=== PATIENT | female | born 1955 | race Caucasian/White ===

== ENCOUNTER → 2017-04-23 | Outpatient (CLI) | payer BC | END | disposition home or self-care (01) | LOC: C.RDSM 17:01 | PROVIDERS: ATTEND Physical Medicine & Rehabilitation Sports Medicine | DX: M25.561 Pain in right knee (principal) ==

== ENCOUNTER → 2017-06-11 | Outpatient (CLI) | payer BC | END | disposition home or self-care (01) | LOC: C.PAPS 13:55 | PROVIDERS: ATTEND Obstetrics & Gynecology | DX: Z01.419 Encounter for gynecological examination (general) (routine) without abnormal findings (principal); Z78.0 Asymptomatic menopausal state ==

== ENCOUNTER → 2017-06-25 | Outpatient (CLI) | payer BC ==
--- NOTE | 2017-06-25 15:44 | MAMMOGRAPHY REPORT ---
BILATERAL DIGITAL SCREENING MAMMOGRAM TOMOSYNTHESIS WITH CAD: 06/25/2017 CLINICAL HISTORY: Routine screening. Patient has no complaints. TECHNIQUE: Breast tomosynthesis in addition to standard 2D mammography was performed. Current study was also evaluated with a Computer Aided Detection (CAD) system. COMPARISON: Comparison is made to exams dated: 06/22/2016 mammogram, 06/21/2015 mammogram, 06/18/2014 m ammogram, 06/17/2013 mammogram, 06/13/2012 mammogram, and 06/13/2011 mammogram - [facility] enter. BREAST COMPOSITION: The tissue of both breasts is heterogeneously dense, which may obscure small mas ses. FINDINGS: There is evidence of prior left breast surgery, with linear scar markers overlying the late ral left breast. There are stable benign rodlike calcifications in the lateral left breast. Stable asymmetry in the superior right breast on the MLO view. No new suspicious mass, architectural distor tion or cluster of microcalcifications is seen. IMPRESSION: ACR BI-RADS CATEGORY 1: NEGATIVE There is no mammographic evidence of malignancy. A 1 year screening mammogram is recommended. The pa tient will receive written notification of the results. Approximately 10% of breast cancers are not detected with mammography. A negative mammographic report should not delay biopsy if a clinically suggestive mass is present. Toya Maldonado M.D. ay/:06/25/2017 12:45:28 [employer]: Betsey Jimenez [facility] letter sent: Normal 1/2 BI-RADS Code: ACR BI-RADS Category 1: Negative
== END | disposition home or self-care (01) ==
LOC: C.MAMM 11:45
PROVIDERS: ATTEND Obstetrics & Gynecology
DX: Z12.31 Encounter for screening mammogram for malignant neoplasm of breast (principal)

== ENCOUNTER → 2017-08-14 | Outpatient (CLI) | payer BC ==
[2017-08-14 10:13] LABS: BASO % 0.3 %; BASO ABS # 0.02 K/uL (0-0.2); COMPLETE YES; EOS % 5.7 %; HEMATOCRIT 43.7 % (37-47); IG% 0.2 %; LYMPH % 27.5 %; LYMPH ABS # 1.83 K/uL (1.2-3.4); MEAN CELL VOLUME 89.9 fL (80-100); MEAN CORPUSCULAR HEMOGLOBIN 29.4 pg (25-34); MEAN CORPUSCULAR HGB CONC 32.7 g/dl (32-36); MEAN PLATELET VOLUME 9.4 fL (7.4-10.4); MONO % 7.2 %; NEUT % 59.1 %; PLATELET COUNT 298 K/uL (130-400); RED BLOOD COUNT 4.86 M/uL (4.2-5.4); WHITE BLOOD COUNT 6.66 K/uL (4.8-10.8)
[2017-08-14 12:39] LABS: ALT/SGPT 26 U/L (12-78); BLOOD UREA NITROGEN 15 mg/dl (7-18); BUN/CREATININE RATIO 22.3 (10-20); CARBON DIOXIDE 27 mmol/L (21-32); CHLORIDE 106 mmol/L (98-107); CHOLESTEROL 202 mg/dl (0-200); CREATININE 0.69 mg/dl (0.60-1.20); GLUCOSE 92 mg/dl (70-99); POTASSIUM 3.8 mmol/L (3.5-5.1); SODIUM 139 mmol/L (136-145); TRIGLYCERIDES 125 mg/dl (0-150); VERY LOW DENSITY LIPOPROT CALC 25 mg/dl
[2017-08-14 12:49] LABS: ALB/GLOB RATIO 1.1 (0.9-2); ALKALINE PHOSPHATASE 79 U/L (45-117); AST/SGOT 16 U/L (15-37); CHOLESTEROL/HDL RATIO 4.2; HDL CHOLESTEROL 48 mg/dl; LDL CHOLESTEROL CALCULATED 129 mg/dl
== END | disposition home or self-care (01) ==
LOC: C.LAB1850 09:22
PROVIDERS: ATTEND Internal Medicine Pulmonary Disease
DX: I10 Essential (primary) hypertension (principal); R00.2 Palpitations

== ENCOUNTER → 2017-11-30 | Outpatient (CLI) | payer OTHER ==
--- NOTE | 2017-11-30 15:23 | DIAGNOSTIC IMAGING REPORT ---
R TOE(S) MIN 2 VIEWS, L TOE(S) MIN 2 VIEWS HISTORY: 62 years-old Female COMPARISON TO L HALLUX bilateral great toe pain COMPARISON: None available. TECHNIQUE: 3 views of the bilateral toes with attention to the first digits. FINDINGS: LEFT: Mild joint space narrowing with subchondral sclerosis of the first MTP joint. Mild periarticular osteopenia. No acute fracture or dislocation. No opaque foreign body. Mild degenerative changes of the imaged interphalangeal joints. RIGHT: Mild joint space narrowing with subchondral sclerosis of the first MTP joint, most pronounced medially. Mild periarticular osteopenia. No acute fracture or dislocation. No opaque foreign body. Mild degenerative changes of the imaged interphalangeal joints. 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 The above report was generated using voice recognition software. It may contain grammatical, syntax or spelling errors. Electronically signed by: Madhu Wang M.D. 11/30/2017 3:22 PM Dictated Date/Time: 11/30/2017 3:19 PM
== END | disposition home or self-care (01) ==
LOC: C.RAD1850 14:55
PROVIDERS: ATTEND Podiatrist
DX: M25.775 Osteophyte, left foot (principal)

== ENCOUNTER 2025-01-22 16:35 | Observation (INO) ==
--- NOTE | 2025-01-22 16:52 | Emergency Department Note ---
Impression & Plan Fall, Pericardial effusion, Cardiomegaly, Closed fracture of distal end of right fibula, Fracture of first metatarsal bone of right foot ED Provider Note CHIEF COMPLAINT: Fall, ankle and foot injury HISTORY OF PRESENTING ILLNESS: This 70-year-old female patient presents to the emergency department with her for evaluation after a fall. The patient states that she just got back from [email or web address] today. She was unpacking and started to walk down the steps. The patient apparently fell down 5 steps, but the patient does not remember the event or how she fell. The patient just remembers waking up at the bottom of the steps. The patient does not think she hit her head, but does not remember. She is not on a blood thinner. She is complaining of right ankle and foot pain with swelling. The patient was able to walk back up the steps after the event, but is having trouble walking now. She denies any known chest pain, SOB, or dizziness prior to the fall. She denies any chest pain, SOB, or abdominal pain at this time. Denies headache, dizziness, change in vision, nausea, vomiting, or change in personality. Denies any neck or back pain. Mild right hip pain and then most pain in the right ankle and foot. REVIEW OF SYSTEMS: See HPI for pertinent positives and pertinent negatives. ALLERGIES: PCN, amoxicillin, Sulfa, adhesive tape MEDICATIONS: See below PAST MEDICAL HISTORY: See below PHYSICAL EXAM: VITALS: Vitals are noted on the nurse's note and reviewed by myself. GENERAL: No acute distress, non-diaphoretic. SKIN: The skin was without obvious lacerations or abrasions. The patient has some sunburn on exam, but no evidence for peeling, vesicles, pustules, or infection. Capillary reflex less than 2 seconds. HEAD: Normocephalic. No scalp tenderness or step-offs felt. EARS: Bilateral external auditory canals clear without tragus tenderness. Bilateral tympanic membranes pearly morales without erythema or effusion. No mastoid tenderness bilaterally. No hemotympanum. No duque sign. EYES: Pupils equal round and reactive to light and accommodation. Conjunctivae without injection, sclerae without icterus. Extraocular movements intact. No nystagmus. NOSE: Patent without discharge. No sinus tenderness. No septal hematoma or bleeding. FACE: No facial bone tenderness. Full range of motion of the jaw without tenderness. No facial droop. MOUTH: Mucous membranes moist. Pharynx without erythema or exudate. Uvula midline. Airway patent. Tongue does not deviate. NECK: Supple without nuchal rigidity. Cervical spine is nontender. Full range of motion of the neck without tenderness. HEART: Regular rate and rhythm without murmurs gallops or rubs. LUNGS: Clear to auscultation bilaterally without wheezes, rales or rhonchi. No retractions or accessory muscle use. CHEST: No chest wall tenderness. ABDOMEN: Positive bowel sounds x 4. Normal tympanic percussion. Soft, nontender, without masses or organomegaly. No guarding or rebound tenderness. MUSCULOSKELETAL: No tenderness of the thoracic or lumbar spine. No tenderness with pelvic rocking. Patient has mild tenderness to palpation over the lateral aspect of the right hip. The patient is maximally tender to palpation over the dorsal aspect of the right foot, the right great toe, and the lateral malleolus of the right ankle. The right great toe is pulled dorsally, but she still has full passive range of motion. However, the patient is unable to move the great toe and has no strength to resistance and I am concerned about a possible tendon or ligament injury. No tenderness to palpation to the remainder of the right lower extremity. Full range of motion of the right knee and right hip without significant tenderness. Full range of motion without tenderness to palpation in all remaining extremities. Dorsalis pedis and posterior tibial pulses 2+ and equal bilaterally. Radial pulses 2+ and equal bilaterally. NEURO: Patient was alert and oriented to person place and time. Normal mental status exam. Normal sensation to light and sharp touch. Cerebellar function intact. No focal neurological deficits. DIFFERENTIAL DIAGNOSIS: Differential diagnosis includes cardiac arrhythmia, SD, vasovagal syndrome, aortic stenosis, pulmonary stenosis, hypertrophic cardiomyopathy, mitral valve prolapse, prolonged QT syndrome, sick sinus syndrome, drug toxicity, tension pneumothorax, cardiopulmonary syncope, pulmonary vascular disease, basilar artery insufficiency, subclavian steal syndrome, migraine, carotid sinus syndrome, orthostatic hypotension, dehydration, hyperventilation, psychiatric causes, fracture, subluxation, dislocation, contusion, ligamentous injury, neurovascular, compartment syndrome, rhabdomyolysis, as well as other pathologies. ED COURSE AND MEDICAL DECISION MAKING: HISTORY FROM INDEPENDENT HISTORIAN: Additional history obtained from the patient's MEDICATIONS GIVEN: 500 mL normal saline solution bolus. Tylenol 1000 mg IV. MONITOR: Continuous campus monitor: Order was placed for continuous campus monitor. Patient was placed on the campus monitor and continuous pulse ox. Patient was noted to be in normal sinus rhythm at an initial rate of 80 bpm per my interpretation. EKG: EKG was interpreted by myself as normal sinus rhythm at 76 bpm with no acute ST or T wave changes. Her QT has lengthened from her previous EKG with a QT/QTc of 404/454. INTERPRETATION OF LABS: I interpreted the labs with full lab results as below in the lab section of this note. Laboratory results pertinent to the emergent complaint are discussed in the MDM section below. The patient was advised to follow up with their PCP and/or specialist(s) for further outpatient monitoring and management of any abnormal results. INTERPRETATION OF IMAGING: Imaging studies were interpreted by myself and read by radiology as per the imaging section of this note. The patient was advised to follow up with their PCP and/or specialist(s) for further outpatient management of any non-emergent abnormal findings. CT scan of the head without contrast was negative for acute intracranial abnormality. Chest x-ray showed mild prominent cardiac size, but no other acute cardiopulmonary etiology. X-rays of the right hip and pelvis were negative for acute fracture or dislocation. X-rays of the right ankle show a mildly displaced acute traumatic spiral fracture of the distal fibular shaft. X-rays of the right foot show an age-indeterminate injury at the base of the hallux metatarsal with an age-indeterminate avulsion injury with intra-articular extension into the TMT joint and abnormal widening of the Lisfranc interval. I am concerned that these are acute injuries based on the patient's exam findings. CTA of the chest with IV contrast shows no evidence for PE. There is cardiomegaly and mild pulmonary vascular congestion as well as a trace pericardial effusion. Venous Doppler of the bilateral lower extremities interpreted by myself are negative for DVT, but radiology report still pending. CT scans of the right foot and ankle without contrast were still pending at the time of admission. CONSULTATIONS: Dr. Gray of orthopedics. On-call hospitalist. SPLINTING: Definitive fracture care was performed by myself. The patient was placed in a posterior and sugar-tong Ortho-Glass splint under my direction. Neurovascular status was rechecked and intact. MDM SUMMARY: I examined the patient. The patient just came back from [facility] today. She was unpacking and ended up falling down 5 steps. However, the patient does not remember falling down the steps and does not remember what happened to cause her to fall down the steps. Unclear whether this was a syncopal episode causing the fall, a loss of consciousness from the fall, or mechanical fall with poor memory of the event. The patient is complaining of pain mainly to the right ankle and foot, but also has minimal tenderness to palpation over the lateral aspect of the right hip. She denies any chest pain, shortness of breath, abdominal pain, nausea, vomiting, or other head injury symptoms. She denies any neck or back pain. Denies any pain to the remainder of the extremities. The patient also had a flight to and from [place] in September. Since it is uncertain whether this was a syncopal episode or not, a further workup will be performed. An IV lock was placed and labs were drawn. White blood cell count normal at 10.30. Hemoglobin normal at 13.8. Platelet count normal at 280. Coags were normal. Glucose 112, but CMP otherwise normal. Lipase normal. Magnesium normal. High-sensitivity troponin normal. Urinalysis normal. The patient has no tenderness to palpation of the cervical spine, thoracic spine, or lumbar spine. No tenderness to palpation in any area other than the right lateral hip, right ankle, and right foot. Initially the patient had a CT scan of the head without contrast that was negative for acute intracranial abnormality, chest x-ray that showed mild prominent cardiac size, but otherwise negative, negative x-rays of the right hip and pelvis, and x-rays of the right ankle and foot that show the fractures as above. I spoke with Dr. Gray of orthopedics in regards to the foot and ankle fractures. He recommended CT scans of the foot and ankle without contrast for further evaluation to determine if surgical intervention were required. He recommended a posterior and stirrup Ortho-Glass splint for immobilization. He recommended the patient be nonweightbearing. He did not feel the patient required admission or transfer for the orthopedic injuries. The patient's D-dimer did come back elevated at 2350. CTA of the chest with IV contrast shows no evidence for PE. There is cardiomegaly and mild pulmonary vascular congestion as well as a trace pericardial effusion. Venous Doppler of the bilateral lower extremities interpreted by myself are negative for DVT, but radiology report still pending. I had a meaningful discussion about this patient with Dr. Liao who agrees with my assessment and the treatment plan. Due to the patient's possible syncopal episode as a cause of the fall since she could not remember the fall itself or what caused her to fall as well as the cardiomegaly, pulmonary vascular congestion, and trace pericardial effusion on imaging, we feel the patient requires admission for further evaluation and treatment. I spoke with the on- call hospitalist who agreed to admit the patient for further evaluation and treatment. Please refer to their dictation for further details. CT scans of the right foot and ankle without contrast were still pending at the time of admission. The patient's care was transferred in stable condition. DIAGNOSIS: Fall - possible syncopal episode vs mechanical etiology as cause Cardiomegaly with trace pericardial effusion Right distal fibular fracture Fracture of the right first metatarsal with extension into the TMT joint and widening of the Lisfranc interval Elevated D-dimer Past Med/Surg History Problem List (Updated 01/22/25 @ 23:21 by Anahy Germain PA-C) Elevated d-dimer Fracture of first metatarsal bone of right foot (Acute) Closed fracture of distal end of right fibula (Acute) Cardiomegaly (Acute) Pericardial effusion (Acute) Fall (Acute) History of colon polyps Overweight (BMI 25.0-29.9) Hypokalemia Impaired fasting glucose Hypothyroidism Dyslipidemia (Chronic) Hypertension (Chronic) Medical History Prediabetes Dyslipidemia Hypertension Insomnia Tinea corporis Postmenopausal state Fear of needles Hypothyroidism GERD (gastroesophageal reflux disease) Hiatal hernia Arrhythmia Surgical History History of surgical removal of ganglion cyst History of repair of rotator cuff History of esophagogastroduodenoscopy (EGD) History of cardiac cath History of wisdom tooth extraction History of tubal ligation History of breast surgery History of tonsillectomy History of colonoscopy (~09/2019) Family History Family/Other Diabetes Hypertension Son Systemic lupus erythematosus Rheumatoid arthritis Mother Rheumatoid arthritis Diabetes Hyperlipidemia Stroke Grandmother Breast cancer Brother Aortic aneurysm Denies family history of Ovarian cancer Prostate cancer Colorectal cancer Social History Smoking Status: Former smoker Tobacco Type: Cigarettes Age Started Using Tobacco: 33; Age Quit Using Tobacco: 45; packs per day: 0.5; Second Hand Exposure: No; Do You Dip or Chew Tobacco: No; Hx Alcohol Use: Yes Alcohol type: wine Hx Substance Use: No Preferred Language: Maltese Communication Ability: Effective Process Inspector Required: No Beliefs That Will Affect Care: None Current Living Situation: Spouse current occupational status: retired Feels Safe at Home: Yes Dental Care, Regularly: Yes Physical Activity Frequency: 3-4 Times per Week Seatbelt Use: always Sunscreen Use: No Assistive Devices: Glasses Allergies Allergies Allergy/AdvReac Type Severity Reaction Status Date / Time adhesive tape Allergy Mild SKIN Verified 11/27/24 10:04 BLISTERS Penicillins Allergy Unknown A Verified 11/27/24 10:04 CHILD-"CLUMPED IN ARM" Sulfa (Sulfonamide Allergy Unknown Unknown Verified 11/27/24 10:04 Antibiotics) amoxicillin AdvReac Unknown NAUSEA AND Verified 11/27/24 10:04 VOMITING Home Meds Home Medications Medication Instructions Recorded Confirmed cholecalciferol (vitamin D3) 10 400 unit PO 3XWK 08/07/19 01/22/25 mcg (400 unit) capsule (Vitamin D3) cyanocobalamin (vitamin B-12) 500 500 mcg PO 3XWK 08/07/19 01/22/25 mcg tablet glucosamine-chondroitin 250 mg-200 1 tab PO 3XWK 08/07/19 01/22/25 mg tablet (Osteo Bi-Flex) multivitamin 1 tab PO 3XWK 08/07/19 01/22/25 ascorbic acid (vitamin C) 500 mg 500 mg PO DAILY 11/03/24 01/22/25 tablet,extended release (Vitamin C ER) levothyroxine 50 mcg tablet 50 mcg PO DAILYBB 01/22/25 01/22/25 losartan 100 mg tablet 100 mg PO QAM 01/22/25 01/22/25 Previous Rx's Medication Instructions Recorded potassium chloride 20 mEq 20 meq PO QAM #90 tabs 04/09/24 tablet,extended release(part/cryst) Results & Data (ED) Vital Signs Vital Signs - 24 hr 01/22/25 16:40 01/22/25 17:01 01/22/25 17:23 Temperature 36.5 C Temperature Source Temporal Artery Scan Pulse Rate 79 68 Pulse Rate [Apical] Pulse Rate from SpO2 Sensor Respiratory Rate 22 Respiratory Effort / Characteristics Respiratory Depth Blood Pressure 157/86 H Blood Pressure [Left Arm] Blood Pressure Mean 109 Blood Pressure Mean [Left Arm] Pulse Oximetry 98 98 Oxygen Delivery Method Room Air Room Air Sepsis Recent Fever Within 48 Hours No Sepsis New/Unexplained Change in Mental Status N/A Sepsis Action Taken by Nursing No Action Required 01/22/25 18:00 01/22/25 19:45 01/22/25 19:51 Temperature Temperature Source Pulse Rate 72 Pulse Rate [Apical] 71 72 Pulse Rate from SpO2 Sensor 73 Respiratory Rate 18 17 21 Respiratory Effort / Characteristics Non-Labored Spontaneous Respiratory Depth Normal Blood Pressure 138/88 Blood Pressure [Left Arm] 154/75 H 188/104 H Blood Pressure Mean 104 Blood Pressure Mean [Left Arm] 101 132 Pulse Oximetry 98 96 97 Oxygen Delivery Method Room Air Room Air Sepsis Recent Fever Within 48 Hours Sepsis New/Unexplained Change in Mental Status Sepsis Action Taken by Nursing 01/22/25 21:06 Temperature Temperature Source Pulse Rate 71 Pulse Rate [Apical] Pulse Rate from SpO2 Sensor 72 Respiratory Rate 21 Respiratory Effort / Characteristics Respiratory Depth Blood Pressure 156/95 H Blood Pressure [Left Arm] Blood Pressure Mean 115 Blood Pressure Mean [Left Arm] Pulse Oximetry 98 Oxygen Delivery Method Sepsis Recent Fever Within 48 Hours Sepsis New/Unexplained Change in Mental Status Sepsis Action Taken by Nursing Laboratory Data 01/22/25 17:08 01/22/25 17:08 Lab Results 01/22/25 01/22/25 Range/Units 17:08 19:05 WBC 10.30 (4.8-10.8) K/ul RBC 4.73 (4.20-5.40) M/uL Hgb 13.8 (12.0-16.0) g/dl Hct 42.4 (37.0-47.0) % MCV 89.6 (80.0-100.0) fL MCH 29.2 (25.0-34.0) pg MCHC 32.5 (32.0-36.0) g/dL RDW Std Deviation 44.7 (36.4-46.3) fL RDW Coeff of [place]ingo 13.6 (11.5-14.5) % Plt Count 280 (130-400) K/uL MPV 9.2 L (9.4-12.4) fL Immature Gran % (Auto) 0.4 % Neut % (Auto) 75.4 % Lymph % (Auto) 14.2 % [place] % (Auto) 6.6 % Eos % (Auto) 3.0 % Baso % (Auto) 0.4 % Neut # (Auto) 7.77 H (1.40-6.50) K/uL Lymph # (Auto) 1.46 (1.20-3.40) K/uL [place] # (Auto) 0.68 H (0.11-0.59) K/uL Eos # (Auto) 0.31 (0.00-0.50) K/uL Baso # (Auto) 0.04 (0.00-0.20) K/uL Immature Gran # (Auto) 0.04 (0.01-0.20) K/uL PT 10.9 (9.0-12.0) Seconds INR 1.0 (0.9-1.1) APTT 22 (21-31) Seconds PTT Ratio 0.8 D-Dimer 2350 H* (0-500) ug/L FEU Sodium 140 (136-145) mmol/L Potassium 3.8 (3.5-5.1) mmol/L Chloride 107 (98-107) mmol/L Carbon Dioxide 27 (21-32) mmol/L Anion Gap 6 (3-11) BUN 14 (6-23) mg/dl Creatinine 0.77 (0.6-1.2) mg/dl Est Cr Clr Drug Dosing 78.5 ml/min eGFR 83.45 BUN/Creatinine Ratio 18.2 (10-20) Glucose 112 H (70-99(Fasting)) mg/dl Calcium 8.9 (8.6-10.3) mg/dl Magnesium 2.0 (1.7-2.4) mg/dl Total Bilirubin 0.6 (0.2-1.0) mg/dl AST 13 (13-39) U/L ALT 10 (7-52) U/L Alkaline Phosphatase 65 (34-104) U/L Troponin I High Sens 5.3 (0-14) pg/ml Total Protein 6.8 (6.0-8.3) gm/dl Albumin 4.2 (3.4-5.0) gm/dl Globulin 2.6 (2.5-4.0) gm/dl Albumin/Globulin Ratio 1.6 (0.9-2) Lipase 18 (11-82) U/L Urine Color Yellow Urine Appearance Clear (Clear) Urine pH 5.5 (4.5-7.5) Ur Specific [place] 1.016 (1.000-1.030) Urine Protein Negative (Negative) Urine Glucose (UA) Negative (Negative) Urine Ketones Negative (Negative) Urine Blood Negative (Negative) Urine Nitrite Negative (Negative) Urine Bilirubin Negative (Negative) Urine Urobilinogen Negative (Negative) Ur Leukocyte Esterase Negative (Negative) Administered Medications Discontinued Medications Sodium Chloride (Nss) 500 mls @ 999 mls/hr IV .Q31M ONE Stop: 01/22/25 17:31 Last Infusion: 01/22/25 19:46 Dose: Infused Documented By: Admin: 01/22/25 17:18 Dose: 999 mls/hr Documented By: JANIA Acetaminophen (Ofirmev) 1,000 mg in 100 mls @ 400 mls/hr IV NOW STA Stop: 01/22/25 17:15 Last Infusion: 01/22/25 19:46 Dose: Infused Documented By: Admin: 01/22/25 17:17 Dose: 400 mls/hr Documented By: JANIA Ioversol (Optiray 320 125ml) 119 ml IV ONCE ONE Stop: 01/22/25 18:50 Last Admin: 01/22/25 18:50 Dose: 119 ml Documented By: CASSI Imaging Data Radiologist's Impression: Ankle X-Ray 01/22/25 17:01 INDICATION: Pain TECHNIQUE: 4 views of the right ankle were obtained. COMPARISON: None FINDINGS: There is a spiral lucency over the distal fibular shaft. There is no significant displacement identified in the ankle x-ray,however when this area is evaluated in the foot x-ray, there appears to be a mild displacement. IMPRESSION: Mildly displaced acute traumatic spiral fracture of the distal fibular shaft Electronically signed by Nura Navarro 01-22-2025 6:43 PM Chest X-Ray 01/22/25 17:01 EXAM: Portable AP chest radiograph TECHNIQUE: AP portable radiograph of the chest was obtained. INDICATION: Trauma Comparison: Chest radiograph FINDINGS: LINES and TUBES: None CARDIOVASCULAR: Cardiac silhouette is mildly enlarged in size. LUNGS/PLEURA: No focal consolidation identified. No significant pleural fluid. No discernible pneumothorax. OSSEOUS/OTHER: No displaced acute osseous process identified. IMPRESSION: Mildly prominent cardiac size. Otherwise no radiographic evidence of acute cardiopulmonary process. Electronically signed by Nura Navarro 01-22-2025 6:43 PM Foot X-Ray 01/22/25 17:01 INDICATION: Pain TECHNIQUE: 4 views of the right foot were obtained. COMPARISON: None FINDINGS: There is an age-indeterminate avulsion injury in the base of the hallux metatarsal. In addition there is an abnormal widening of the Lisfranc interval. IMPRESSION: Evidence of age-indeterminate injury at the base of the hallux metatarsal with an age-indeterminate avulsion injury with intra-articular extension into the TMT joint and abnormal widening of the Lisfranc interval. Electronically signed by Nura Navarro 01-22-2025 6:[address] 01/22/25 17:01 Clinical History: Fall. Possible syncope. Technique: Axial computed tomography images were obtained of the brain from the vertex to the skull base without intravenous contrast. Findings: There is no sign of intracranial hemorrhage. There is normal morales-white matter differentiation with no sign of acute or old infarction. No midline shift or other form of herniation is identified. There is no hydrocephalus. No obvious mass lesion is seen on this noncontrast examination. The visualized portions of the orbits and paranasal sinuses appear unremarkable. The mastoid air cells appear clear Impression: Unremarkable noncontrast CT of the brain Electronically signed by Antwan Jurado 01-22-2025 5:57 PM Hip/Pelvis X-Ray 01/22/25 17:01 INDICATION: Pain TECHNIQUE: Frontal pelvis and 2 views of right hip were obtained. COMPARISON: None FINDINGS: No displaced acute osseous process is identified. Mild osteoarthritis of both hip joints. IMPRESSION: No displaced acute osseous process is identified. Electronically signed by Nura Navarro 01-22-2025 6:43 PM Chest CTA 01/22/25 18:36 CT PULMONARY ANGIOGRAM. HISTORY: Chest pain TECHNIQUE: Enhanced CT examination of the chest was performed using pulmonary embolism protocol. IV CONTRAST: 100 mL of OMNIPAQUE 300 COMPARISON: Chest radiograph from the same day. FINDINGS: PULMONARY ARTERIES: No filling defect identified to the segmental level. LYMPH NODES: No lymphadenopathy by size criteria. CARDIOVASCULAR: Enlarged cardiac size. Trace pericardial effusion. No aortic aneurysm. There are coronary artery calcifications in keeping with coronary artery disease. MEDIASTINUM: No solid or cystic mediastinal masses. The esophagus is normally decompressed. LUNGS/PLEURA: The central tracheo-bronchial tree is patent. Mild pulmonary vascular congestion no mass or consolidation identified. No pleural effusion or pneumothorax. No suspicious pulmonary nodules. BONES: No suspicious osseous lesions. VISUALIZED LOWER NECK: Multiple thyroid nodules measuring 1.0 cm. VISUALIZED UPPER ABDOMEN: Renal cysts. IMPRESSION: No pulmonary embolism identified to the segmental level. Cardiomegaly and mild pulmonary vascular congestion. No evidence of right heart strain. Electronically signed by Nura Navarro 01-22-2025 7:14 PM Discharge Plan Visit Data Chief Complaint: Foot Injury/Pain Stated Complaint: RT FOOT POSSIBLE BREAK ED Provider: Ramón Liao ED Midlevel Provider: Anahy Germain Discharge Problem: Fall, Pericardial effusion, Cardiomegaly, Closed fracture of distal end of right fibula, Fracture of first metatarsal bone of right foot Patient Disposition: Admitted As Inpatient Condition: Good Discharge Instructions Interventions: ED Discharge Assessment Last Done: 01/22/25 22:41 Discharge Problem: Fall Qualifiers: Encounter type: initial encounter Qualified Code(s): W19.XXXA - Unspecified fall, initial encounter Closed fracture of distal end of right fibula Qualifiers: Encounter type: initial encounter Fracture of first metatarsal bone of right foot Qualifiers: Encounter type: initial encounter Fracture type: closed
[2025-01-22] MEDS: ACETAMINOPHEN 1,000 MG/100 ML VIAL IV STA (17:17)
[2025-01-22] MEDS: SODIUM CHLORIDE 0.9% 500 ML IV ONE (17:18)
[2025-01-22 17:25] LABS: Basophils # (auto) 0.04 K/uL (0.00-0.20); Basophils % (auto) 0.4 %; Eosinophils # (auto) 0.31 K/uL (0.00-0.50); Hematocrit (blood only) 42.4 % (37.0-47.0); Hemoglobin 13.8 g/dl (12.0-16.0); Immature Granulocytes # (auto) 0.04 K/uL (0.01-0.20); Immature Granulocytes % (auto) 0.4 %; Lymphocytes # (auto) 1.46 K/uL (1.20-3.40); Lymphocytes % (auto) 14.2 %; Mean Corpuscular Hemoglobin 29.2 pg (25.0-34.0); Mean Corpuscular Hgb Conc 32.5 g/dL (32.0-36.0); Mean Corpuscular Volume 89.6 fL (80.0-100.0); Mean Platelet Volume 9.2 fL (9.4-12.4); Monocytes # (auto) 0.68 K/uL (0.11-0.59); Monocytes % (auto) 6.6 %; Neutrophils # (auto) 7.77 K/uL (1.40-6.50); Neutrophils % (auto) 75.4 %; Platelet Count 280 K/uL (130-400); RDW Coefficient of Variation 13.6 % (11.5-14.5); RDW Standard Deviation 44.7 fL (36.4-46.3); Red Blood Count 4.73 M/uL (4.20-5.40)
[2025-01-22 17:52] LABS: Partial Thromboplastin Ratio 0.8; Partial Thromboplastin Time 22 Seconds (21-31); Prothrombin Time 10.9 Seconds (9.0-12.0)
[2025-01-22 17:55] LABS: Albumin Globulin Ratio 1.6 (0.9-2); Albumin Level 4.2 gm/dl (3.4-5.0); BUN Creatinine Ratio 18.2 (10-20); Bilirubin,Total 0.6 mg/dl (0.2-1.0); Calcium 8.9 mg/dl (8.6-10.3); Creatinine Clr Calc Pharmacy 78.5 ml/min; Globulin 2.6 gm/dl (2.5-4.0); Potassium 3.8 mmol/L (3.5-5.1); Total Protein 6.8 gm/dl (6.0-8.3)
--- NOTE | 2025-01-22 17:58 | CT Scan Report ---
Clinical History: Fall. Possible syncope. Technique: Axial computed tomography images were obtained of the brain from the vertex to the skull base without intravenous contrast. Findings: There is no sign of intracranial hemorrhage. There is normal morales-white matter differentiation with no sign of acute or old infarction. No midline shift or other form of herniation is identified. There is no hydrocephalus. No obvious mass lesion is seen on this noncontrast examination. The visualized portions of the orbits and paranasal sinuses appear unremarkable. The mastoid air cells appear clear Impression: Unremarkable noncontrast CT of the brain Electronically signed by Antwan Jurado 01-22-2025 5:57 PM
[2025-01-22 18:01] LABS: Troponin I High Sensitivity 5.3 pg/ml (0-14)
[2025-01-22 18:32] LABS: D Dimer 2350 ug/L FEU (0-500)
--- NOTE | 2025-01-22 18:44 | Emergency Department Note ---
ED Visit Note I was consulted in regards to the patient's presentation and plan of care by the Advanced Practice Provider. I engaged in a detailed/meaningful discussion with the Advanced Practice Provider in regards to this patient's workup and plan of care. I performed a substantiative portion of the medical decision making following discussion with the Advanced Practice Provider. Please see the Advanced Practice Provider's separate documentation for full details of the patient's visit. I agree with the assessment and plan of Anahy Germain PA-C. Ramón Liao, DO Emergency Medicine .
--- NOTE | 2025-01-22 18:44 | XRay Report ---
EXAM: Portable AP chest radiograph TECHNIQUE: AP portable radiograph of the chest was obtained. INDICATION: Trauma Comparison: Chest radiograph FINDINGS: LINES and TUBES: None CARDIOVASCULAR: Cardiac silhouette is mildly enlarged in size. LUNGS/PLEURA: No focal consolidation identified. No significant pleural fluid. No discernible pneumothorax. OSSEOUS/OTHER: No displaced acute osseous process identified. IMPRESSION: Mildly prominent cardiac size. Otherwise no radiographic evidence of acute cardiopulmonary process. Electronically signed by Nura Navarro 01-22-2025 6:43 PM
--- NOTE | 2025-01-22 18:46 | XRay Report ---
INDICATION: Pain TECHNIQUE: Frontal pelvis and 2 views of right hip were obtained. COMPARISON: None FINDINGS: No displaced acute osseous process is identified. Mild osteoarthritis of both hip joints. IMPRESSION: No displaced acute osseous process is identified. Electronically signed by Nura Navarro 01-22-2025 6:43 PM
--- NOTE | 2025-01-22 18:46 | XRay Report ---
INDICATION: Pain TECHNIQUE: 4 views of the right foot were obtained. COMPARISON: None FINDINGS: There is an age-indeterminate avulsion injury in the base of the hallux metatarsal. In addition there is an abnormal widening of the Lisfranc interval. IMPRESSION: Evidence of age-indeterminate injury at the base of the hallux metatarsal with an age-indeterminate avulsion injury with intra-articular extension into the TMT joint and abnormal widening of the Lisfranc interval. Electronically signed by Nura Navarro 01-22-2025 6:43 PM
--- NOTE | 2025-01-22 18:46 | XRay Report ---
INDICATION: Pain TECHNIQUE: 4 views of the right ankle were obtained. COMPARISON: None FINDINGS: There is a spiral lucency over the distal fibular shaft. There is no significant displacement identified in the ankle x-ray,however when this area is evaluated in the foot x-ray, there appears to be a mild displacement. IMPRESSION: Mildly displaced acute traumatic spiral fracture of the distal fibular shaft Electronically signed by Nura Navarro 01-22-2025 6:43 PM
[2025-01-22] MEDS: OPTIRAY 320 125ml IV ONE (18:50)
--- NOTE | 2025-01-22 19:16 | CT Scan Report ---
CT PULMONARY ANGIOGRAM. HISTORY: Chest pain TECHNIQUE: Enhanced CT examination of the chest was performed using pulmonary embolism protocol. IV CONTRAST: 100 mL of OMNIPAQUE 300 COMPARISON: Chest radiograph from the same day. FINDINGS: PULMONARY ARTERIES: No filling defect identified to the segmental level. LYMPH NODES: No lymphadenopathy by size criteria. CARDIOVASCULAR: Enlarged cardiac size. Trace pericardial effusion. No aortic aneurysm. There are coronary artery calcifications in keeping with coronary artery disease. MEDIASTINUM: No solid or cystic mediastinal masses. The esophagus is normally decompressed. LUNGS/PLEURA: The central tracheo-bronchial tree is patent. Mild pulmonary vascular congestion no mass or consolidation identified. No pleural effusion or pneumothorax. No suspicious pulmonary nodules. BONES: No suspicious osseous lesions. VISUALIZED LOWER NECK: Multiple thyroid nodules measuring 1.0 cm. VISUALIZED UPPER ABDOMEN: Renal cysts. IMPRESSION: No pulmonary embolism identified to the segmental level. Cardiomegaly and mild pulmonary vascular congestion. No evidence of right heart strain. Electronically signed by Nura Navarro 01-22-2025 7:14 PM
[2025-01-22 19:17] LABS: Appearance Urine Clear (Clear); Bilirubin Urine Negative (Negative); Blood Urine Negative (Negative); Color Urine Yellow; Glucose Urine UA Negative (Negative); Ketones Urine Negative (Negative); Leukocyte Esterase Urine Negative (Negative); Nitrite Urine Negative (Negative); Protein Urine Negative (Negative); Specific Gravity Urine 1.016 (1.000-1.030); Urobilinogen Urine Negative (Negative); pH Urine 5.5 (4.5-7.5)
--- NOTE | 2025-01-22 21:14 | History & Physical Report ---
Date of Service January 22, 2025 Assessment & Plan (1) Fall: (2) Closed fracture of distal end of right fibula: (3) Pericardial effusion: (4) Elevated d-dimer: (5) Hypothyroidism: (6) Dyslipidemia: (7) Hypertension: (8) Prediabetes: Plan Patient is a 70-year-old female with past medical history of hypothyroidism, hyperlipidemia, hypertension, CAD, prediabetes, and GERD who is admitted for monitoring after experiencing a fall that resulted in acute right ankle fracture. Fall - Patient with fall that seems mechanical after she missed a footing on the stairs and did not have good hold of handrail as she was carrying many clothes - Fracture noted as a result; management as below - Patient states she just does not recall how she fell, but denies LOC - Given patient does not fully recall episode, had no preceding sxs, and had hx of fluttering sensation in her chest for which she was on a monitor for a while a few years ago, will admit patient to Med/Tele for cardiac monitoring - Will also place order for TTE given noted pericardial effusion and as part of cardiac work up - Little to no water intake at home; will start IVF for now (R) ankle fracture - Noted on ankle/foot XR - Foot/ankle CT also ordered per recs from ortho and pending read - Ortho consulted; depending on CT findings, will make recs to determine if surgical intervention is indicated versus conservative measures Elevated D-dimer - Patient returned from [facility] yesterday - Chest CTA w/o evidence of PE. but is showing trace pericardial effusion - B/l LE Doppler pending - Possible causes include DVT or result of fall/trauma/fracture - Continue to monitor Hypothyroidism - Continue home levothyroxine HTN - Continue home Losartan HLD - Managed with lifestyle changes - HH and DM-II diet Pre-diabetes - No home meds - DM-II diet Dispo: Med/Tele Fluids: LR @125 ml/hr Diet: NPO pending ortho evaluation to determine if surgical intervention is indicated; if not, can change diet to HH/DM-II Pain Control: Tylenol 1000mg Q8H scheduled and Toradol 15 mg IV Q6H prn for breakthrough pain VTE ppx: Defer chemoprophylaxis until determined if patient is to go for surgical intervention; SCD for now Code Status: DNR/DNI History of Present Illness Chief Complaint: Fall Primary Care Provider: Jorge Lockhart DO Patient is a 70-year-old female with past medical history of hypothyroidism, CAD, hyperlipidemia, hypertension, prediabetes, GERD who came to the emergency department after experiencing a fall at home resulting in significant right ankle pain that limited ambulation. Patient returned from the trip to [facility] yesterday and was unpacking today. While she was walking with a large load of clothing with her arms, she was walking slowly down a flight of 7 steps since she felt a little imbalance while carrying these close, and does not recall whether she missed a step or missed a handlebar to help balance her, but then fell down the steps. She denies having any loss of consciousness, and denies having any preceding symptoms such as chest pain, palpitations, shortness of breath, weakness, vision impairments, diaphoresis, nausea, or any other symptom. A few years ago, patient had been experiencing a fluttering sensation in her chest, for which she was placed on monitor for a short time, but states that nothing was found during this time. Since then, she denies having any recurrence of the fluttering sensation in her chest, but also states that she "does not focus on those types of things ". Labs/Imaging: CBC no significant leukocytosis, hemoglobin of 13.8, and platelets of 280. CMP without significant electrolyte abnormalities, creatinine of 0.77, glucose of 112. D-dimer of ~2300. Magnesium 2.0. Right ankle x-ray showing spiral fracture of distal fibular shaft. Foot x-ray with a possible Lisfranc fracture. Chest x-ray unremarkable. Head CT without acute changes. Hip and pelvic x-ray unremarkable. Foot and ankle CT done and read pending. Chest CTA without evidence of PE, and shows cardiomegaly with trace pericardial effusion. Venous Doppler done and read pending. Medical History: [Reviewed] Medications: [Reviewed] Surgical History: [Reviewed] Family history: [Reviewed] Allergies: [Reviewed] Social History: [Reviewed] Code Status: DNR/DNI Allergies Allergy/AdvReac Type Severity Reaction Status Date / Time adhesive tape Allergy Mild SKIN Verified 11/27/24 10:04 BLISTERS Penicillins Allergy Unknown A Verified 11/27/24 10:04 CHILD-"CLUMPED IN ARM" Sulfa (Sulfonamide Allergy Unknown Unknown Verified 11/27/24 10:04 Antibiotics) amoxicillin AdvReac Unknown NAUSEA AND Verified 11/27/24 10:04 VOMITING Home Medications Medication Instructions Recorded Confirmed Type cholecalciferol (vitamin D3) 10 400 unit PO 3XWK 08/07/19 01/22/25 History mcg (400 unit) capsule (Vitamin D3) cyanocobalamin (vitamin B-12) 500 500 mcg PO 3XWK 08/07/19 01/22/25 History mcg tablet glucosamine-chondroitin 250 mg-200 1 tab PO 3XWK 08/07/19 01/22/25 History mg tablet (Osteo Bi-Flex) multivitamin 1 tab PO 3XWK 08/07/19 01/22/25 History potassium chloride 20 mEq 20 meq PO QAM #90 tabs 04/09/24 01/22/25 Rx tablet,extended release(part/cryst) ascorbic acid (vitamin C) 500 mg 500 mg PO DAILY 11/03/24 01/22/25 History tablet,extended release (Vitamin C ER) levothyroxine 50 mcg tablet 50 mcg PO DAILYBB 01/22/25 01/22/25 History losartan 100 mg tablet 100 mg PO QAM 01/22/25 01/22/25 History Past Med/Surg History Problem List (Updated 01/22/25 @ 23:21 by Anahy Germain PA-C) Elevated d-dimer Fracture of first metatarsal bone of right foot (Acute) Closed fracture of distal end of right fibula (Acute) Cardiomegaly (Acute) Pericardial effusion (Acute) Fall (Acute) History of colon polyps Overweight (BMI 25.0-29.9) Hypokalemia Impaired fasting glucose Hypothyroidism Dyslipidemia (Chronic) Hypertension (Chronic) Medical History Prediabetes Dyslipidemia Hypertension Insomnia Tinea corporis Postmenopausal state Fear of needles Hypothyroidism GERD (gastroesophageal reflux disease) Hiatal hernia Arrhythmia Surgical History History of surgical removal of ganglion cyst History of repair of rotator cuff History of esophagogastroduodenoscopy (EGD) History of cardiac cath History of wisdom tooth extraction History of tubal ligation History of breast surgery History of tonsillectomy History of colonoscopy (~09/2019) Family History Family/Other Diabetes Hypertension Son Systemic lupus erythematosus Rheumatoid arthritis Mother Rheumatoid arthritis Diabetes Hyperlipidemia Stroke Grandmother Breast cancer Brother Aortic aneurysm Denies family history of Ovarian cancer Prostate cancer Colorectal cancer Social History Smoking Status: Former smoker Tobacco Type: Cigarettes Age Started Using Tobacco: 33; Age Quit Using Tobacco: 45; packs per day: 0.5; Second Hand Exposure: No; Do You Dip or Chew Tobacco: No; Hx Alcohol Use: Yes Alcohol type: hard liquor Hx Substance Use: No Preferred Language: Senegalese Communication Ability: Effective Button Puncher Required: No Beliefs That Will Affect Care: None Current Living Situation: Spouse Current Living Situation Comment: home wit current occupational status: retired Other Information That Helps Us Care for You: No Feels Safe at Home: Yes Safety Concerns: Feels Safe At This Time Dental Care, Regularly: Yes Physical Activity Frequency: 3-4 Times per Week Seatbelt Use: always Sunscreen Use: No Assistive Devices: None Review of Systems Review of Systems: As per HPI Physical Exam 2 Physical Exam: GENERAL: Awake alert and oriented in all spheres, afebrile, calm, no acute distress HEAD: Atraumatic, normocephalic EYES: PERRL, EOM intact THROAT: Normal to visual inspection CHEST: Symmetric chest expansions with respirations, no obvious deformity CARDIO: Regular rate and rhythm murmurs or gallops appreciated PULMONARY: Clear to auscultation bilaterally, respiratory effort, no respiratory distress GI: Soft, nontender, nondistended EXTREMITIES: Right lower extremity with distal swelling and discoloration dorsal aspect of foot and significant point tenderness more marked in lateral ankle, no rest obvious deformity noted and no swelling/calf tenderness in bilateral lower extremities Results & Data Results & Data Vital Signs (Past 12 Hours) Vital Signs Temp Pulse Pulse Resp BP BP Pulse Ox 01/22/25 19:45 72 17 188/104 H 96 01/22/25 18:00 71 18 154/75 H 98 01/22/25 17:23 68 01/22/25 17:01 98 01/22/25 16:40 36.5 C 79 22 157/86 H 98 O2 Del Method 05/01/25 19:45 Room Air 01/22/25 18:00 Room Air 01/22/25 17:23 01/22/25 17:01 Room Air 01/22/25 16:40 Room Air Supervising Physician Co-Signing Physician Notes I personally saw and examined the patient. I independently reviewed the labs, EKG, imaging, problem list, medication list, past medical history and family history. I verified all velasco points and agree with resident physician Dr Karyn Nolen MD with the following exceptions and/or additions: 70 year old female presents to the ER with right ankle pain after a fall O/E HS RRR, no murmurs, Chest CTAB, Abdo SNT, right ankle swelling and ecchymosis, normal cap refill, normal toe sensation A/P Tib/fib fracture - non weight bearing, NPO after midnight, consult orthopedics Fall - no concerning features prior to falling. Resident Activity Tracking Resident Involvement: Resident Care Provided Care Provided: Adult Hospital Medicine (1) Fall Encounter type: initial encounter Qualified Code(s): W19.XXXA - Unspecified fall, initial encounter (2) Closed fracture of distal end of right fibula Encounter type: initial encounter
[2025-01-22] MEDS ORDERED: POLYETHYLENE (MIRALAX) 17 GM PACK PO PRN (23:06)
[2025-01-22] MEDS ORDERED: MELATONIN 3 MG TAB PO PRN (23:06)
[2025-01-22] MEDS ORDERED: ONDANSETRON INJ 2 MG/ML 2 ML VIAL IV PRN (23:06)
[2025-01-22] MEDS ORDERED: KETOROLAC TROMETHAMINE 15 MG/ML VIAL IV PRN (23:06)
[2025-01-22] MEDS: LACTATED RINGER'S 1,000 ML IV SCH (23:53)
[2025-01-22] MEDS: ACETAMINOPHEN 500 MG TAB PO SCH (23:56)
--- NOTE | 2025-01-23 00:54 | Ultrasound Report ---
Exam(s): US VENOUS BILATERAL LOWER EXTREMITIES EXAM: US Duplex Bilateral Lower Extremities Veins CLINICAL HISTORY: Reason for exam: Elevated D-dimer, trauma, swelling, eval DVT. TECHNIQUE: Real-time duplex ultrasound scan of the bilateral lower extremity veins integrating B-mode two-dimensional vascular structure, Doppler spectral analysis, color flow Doppler imaging and compression. COMPARISON: None FINDINGS: Right deep veins: Unremarkable. No DVT in the right common femoral, femoral, proximal deep femoral or popliteal veins. The veins demonstrate normal color flow, are normally compressible, with normal phasic flow and/or augmentation response. Right superficial veins: Unremarkable. No thrombus in the visualized right great saphenous vein. Left deep veins: Unremarkable. No DVT in the left common femoral, femoral, proximal deep femoral or popliteal veins. The veins demonstrate normal color flow, are normally compressible, with normal phasic flow and/or augmentation response. Left superficial veins: Unremarkable. No thrombus in the visualized left great saphenous vein. Soft tissues: No acute findings. No popliteal cyst.. IMPRESSION: Negative for DVT in the right/left lower extremity . Electronically signed by: Romina Copeland MD, BJ 01/23/25 00:53 AM
[2025-01-23] MEDS: CYCLOBENZAPRINE HCL 10 MG TAB PO STA (01:15)
--- NOTE | 2025-01-23 02:08 | CT Scan Report ---
Exam(s): CT RIGHT FOOT Without Contrast EXAM: CT Right Lower Extremity Without Intravenous Contrast, Foot CLINICAL HISTORY: Reason for exam: Further eval fracture. TECHNIQUE: Axial computed tomography images of the right foot without intravenous contrast. CTDI is 24.91 mGy and DLP is 478.07 mGy-cm. Automated exposure control was utilized for the study. A dose lowering technique was utilized adhering to the principles of ALARA. COMPARISON: X-ray right foot: 01/22/2025 FINDINGS: Bones/joints: A nondisplaced intra-articular fracture of the posterior malleolus (series 500 image 34-37). Anteriorly is a mildly displaced cortical avulsion fracture of the fibula distally (series 501 image 9). Demonstrates medially and laterally small intra-articular corner fractures of the first, second and third metatarsals bases with associated somewhat divergent type Lisfranc dislocation. Laterally as well is an avulsion fracture of the navicular bone (series 501 image 57). Soft tissues: There is soft tissue edema/swelling of the foot more dorsally.. A small posterior calcaneal enthesophyte. A plantar calcaneal spur. IMPRESSION: 1. Nondisplaced intra-articular fracture of the posterior malleolus. Anteriorly a mildly displaced cortical avulsion fracture of the fibula distally. 2. Medially and laterally a small intra-articular corner fractures of the first, second and third metatarsal bases seen with a somewhat divergent type Lisfranc dislocation. 3. Laterally as well an avulsion fracture of the navicular bone. 4. Soft tissue edema/swelling of the right foot more dorsally. . Electronically signed by: Romina Copeland MD, BJ 01/23/25 02:07 AM
--- NOTE | 2025-01-23 02:18 | CT Scan Report ---
Exam(s): CT RIGHT ANKLE Without Contrast EXAM: CT Right Lower Extremity Without Intravenous Contrast, Ankle CLINICAL HISTORY: Reason for exam: Eval fracture further. TECHNIQUE: Axial computed tomography images of the right ankle without intravenous contrast. CTDI is 24.91 mGy and DLP is 478.07 mGy-cm. Automated exposure control was utilized for the study. A dose lowering technique was utilized adhering to the principles of ALARA. COMPARISON: X-ray right ankle: 01/22/2025 FINDINGS: Bones/joints: There is a minimally displaced spiral fracture of the distal shaft of the fibula (series 300 image 65). Anteriorly a small cortical avulsion fracture of the lateral malleolus (series 301, image 22, series 300 image 56). No fracture of the medial malleolus. A nondisplaced intra-articular fracture of the tibial posterior malleolus. Suspect instability of the ankle mortise. Soft tissues: Periarticular soft tissue edema/swelling of the right ankle. . Concurrently performed CT right foot exam is reported separately. IMPRESSION: A minimally displaced spiral fracture of the distal shaft of the right fibula. A nondisplaced intra-articular fracture of the tibial posterior malleolus. Anteriorly a small cortical avulsion fracture of the lateral malleolus. Periarticular soft tissue edema/swelling of the ankle. . Electronically signed by: Romina Copeland MD, BJ 01/23/25 02:17 AM
--- NOTE | 2025-01-23 05:26 | Billing Data ---
Date of Service January 22, 2025 Coding Level of Care Code 72321 INT INP/OBS CARE
[2025-01-23] MEDS: LEVOTHYROXINE SODIUM 50 MCG TABLET PO SCH (05:34)
--- NOTE | 2025-01-23 07:21 | Hospitalist Progress Note ---
Date of Service January 23, 2025 Assessment & Plan (1) Closed fracture of distal end of right fibula: (2) Fracture of right foot: (3) Pericardial effusion: (4) Elevated d-dimer: (5) Hypothyroidism: (6) Dyslipidemia: (7) Hypertension: (8) Prediabetes: Plan Patient is a 70-year-old female with past medical history of hypothyroidism, hyperlipidemia, hypertension, CAD, prediabetes, and GERD who is admitted for monitoring after experiencing a mechanical fall that resulted in acute right ankle fracture and right foot fracture. Mechanical fall, does not seem very concerning for syncopal episode. No significant events on tele overnight, occasional PVCs. Pericardial effusion on CTA chest is trivial. Ddimer was elevated and had recent plane flight but CTA negative for PE, LE duplex negative. # Right ankle fractures # Right foot fractures -consulted orthopedics - Dr. Gray plans for surgery next week when the swelling has reduced -continue pain control with scheduled APAP and PRN tramadol, NWB RLE, elevate - she was able to mobilize well with physical therapy and return home with her -No medical contraindications to proceeding to surgery if needed. Personally reviewed EKG tracing - no acute/unstable changes. Presumed CAD based on CTA with coronary calcifications, possible old inferior infarct on EKG, Echo pending. No symptoms of ACS/angina or heart failure. Hypothyroidism - Continue home levothyroxine HTN - Continue home Losartan HLD - Managed with lifestyle changes - HH and DM-II diet Pre-diabetes - No home meds - counseled with respect to diet follow-up in primary care provided prescription for bedside commode, wheelchair, she already has a walker and crutches at home. Discharge prescriptions for pain control VTE ppx: 81 mg aspirin twice a day Admission and Anticipated Discharge Date Admission Date: January 22, 2025 Subjective right ankle is splinted and actually not very painful at all even with moving around. No other injuries. The fall was mechanical she was carrying a few pieces of laundry down the stairs and she somehow slipped or missed a step. She did not lose consciousness or hit her head. She has no head neck or back pain Physical Exam Physical Exam: Last 24h vitals reviewed GEN: no acute distress, sitting in bed HEENT: pupils equal, sclerae anicteric, moist MM RESP: normal WOB, CTAB CV: reg no mrg ABD: soft/nt/nd +BT : no sofia SKIN: warm and dry, no generalized rashes extremities: Right lower extremity is in a splint and covered with an Kareem wrap her toes are pink and well-perfused NEURO: AOx person, place, and situation. Face symmetric, speech normal, moves 4 ext spontaneously and equally Results & Data Results & Data Vital Signs (Past 12 Hours) Vital Signs Temp Pulse Pulse Pulse Resp BP BP 01/23/25 04:00 36.5 C 73 18 132/82 01/22/25 23:25 36.4 C L 81 14 145/85 H 01/22/25 23:06 78 01/22/25 22:33 77 21 170/99 H 01/22/25 21:21 67 01/22/25 21:06 71 21 156/95 H 01/22/25 19:51 72 21 138/88 01/22/25 19:45 72 17 188/104 H Pulse Ox O2 Del Method 01/23/25 04:00 98 Room Air 01/22/25 23:25 98 Room Air 01/22/25 23:06 01/22/25 22:33 95 01/22/25 21:21 01/22/25 21:06 98 01/22/25 19:51 97 01/22/25 19:45 96 Room Air Laboratory Results BMP CBC coags UA negative yesterday - reviewed Reviewed foot and ankle CTs Reviewed LE duplex - neg CTA chest - neg for PE, trace pericardial effusion, coronary calcifications Ddimer elevated Personally reviewed EKG tracing - NSR, Q in III PG Care Time/CCT Total # of Minutes Spent Total Time Spent with Patient: Total time spent is greater than 50% in coordination of care (as documented) at patient's floor/unit and/or counseling patient: Coding Level of Care Code None Diagnoses Closed fracture of distal end of right fibula S82.831A Encounter type: initial encounter Fracture of right foot S92.901A Pericardial effusion I31.39 Elevated d-dimer R79.89 Hypothyroidism E03.9 Dyslipidemia E78.5 Hypertension I10 Prediabetes R73.03 (1) Closed fracture of distal end of right fibula Encounter type: initial encounter
[2025-01-23] MEDS: LOSARTAN POTASSIUM 50 MG TAB PO SCH (07:57)
[2025-01-23] MEDS: POTASSIUM CHLORIDE CRTAB 20 MEQ TABCR PO SCH (08:01)
[2025-01-23 08:04] VITALS: RESP 20; TEMP 98.6
[2025-01-23 11:18] VITALS: BP 165/104; O2SAT 94
[2025-01-23 17:06] VITALS: PULSE 75
--- NOTE | 2025-01-23 18:43 | XCELERA ---
[id number] \\[id number]
--- NOTE | 2025-01-23 21:36 | Orthopedic Consultation ---
Date of Consultation January 23, 2025 Assessment & Plan (1) Closed traumatic dislocation of tarsometatarsal (TMT) joint of right foot: (2) Closed fracture of distal end of right fibula: (3) Pericardial effusion: (4) Cardiomegaly: (5) Hypertension: (6) Overweight (BMI 25.0-29.9): (7) Impaired fasting glucose: Teresa Perla is a 70-year-old female who presented to the hospital for evaluation of her right foot and ankle after a fall that occurred at home. Upon evaluation in the emergency department she was found to have a significant right midfoot injury as well as a distal fibula fracture on the right side. The patient was admitted to the hospitalist service due to findings of a pericardial effusion and cardiomegaly on the chest CT scan. She has been seen and evaluated by cardiology and has been deemed appropriate for discharge home. Following discussion with the patient regarding the nature of her current injury. We discussed in great detail the pathoanatomy, pathophysiology, treatment options for this. I did discuss that her midfoot injury is quite sign ificant and due to this my recommendation would be for operative management. She seems to have sustained dislocations or subluxations across the entirety of her midfoot and my recommendation would be for acute arthrodesis of her 1st through 3rd TMT joints with close reduction percutaneous pinning of the 4th/5th/cuboid joint. Additionally, at the time of surgery we would perform an external rotation stress exam of the ankle under anesthesia and determine if fibular fixation is indicated. I discussed in great detail the risks, benefits, alternatives to surgical management. Risks include but are not limited to loss of life/limb, DVT, incomplete relief of pain, incomplete wound healing, need for additional surgery, posttraumatic osteoarthrosis of the foot and ankle, iatrogenic injury to bone/nerve/tendon/vessel, continued pain, hardware complication, hardware failure, nonunion, malunion. I discussed with the alternative to surgery would be for casting to allow for midfoot consolidation. I expressed to her that in my opinion she is at a very high risk for significant osteoarthrosis of her midfoot with this treatment plan and would likely require fusions in the future anyways. I expressed to her that studies show that acute fusions in these types of injuries especially for patients of her age tend to fuse at a higher rate than if they are done in a delayed fashion. After thorough discussion of the risk, benefits, alternatives to surgical management, through shared decision making model, the patient has elected to proceed with surgery. I did explain to her that the most important piece of the puzzle with regards to timing of surgical management is the soft tissue swelling, so I implored her to keep her limb elevated at all times and keep her splint on in order to help with her soft tissue swelling layne appropriately. I will plan to see the patient in the office next week to schedule definitive surgical management, but this will likely not take place for the next 1 to 2 weeks to allow for the soft tissues to become amenable for surgical passage. For the time being, the patient should be nonweightbearing on her right lower extremity. She should begin DVT prophylaxis in the form of 81 mg of aspirin p.o. twice daily. I will see her in clinic next Sunday. History of Present Illness Reason for Consultation: right foot and ankle injury Attending Physician: Dinorah Meraz MD History of Present Illness This is a 70-year-old female with past medical history of hypothyroidism, CAD, hyperlipidemia, hypertension, prediabetes, GERD who came to the emergency department after experiencing a fall at home resulting in significant right foot and ankle pain that limited ambulation. While she was walking with a large load of clothing with her arms, she was walking slowly down a flight of 7 steps since she felt a little imbalance while carrying these close, and does not recall whether she missed a step or missed a handlebar to help balance her, but then fell down the steps. She denies having any loss of consciousness, and denies having any preceding symptoms such as chest pain, palpitations, shortness of breath, weakness, vision impairments, diaphoresis, nausea, or any other symptom. Patient was seen and evaluated by the emergency department staff where she was placed into a well-padded splint. She had CT scans and x-rays obtained of her foot and ankle. Orthopedics was consulted for further management. The patient has been admitted to the hospitalist team for cardiac workup. At this time, she has been deemed stable for discharge. Allergies Allergy/AdvReac Type Severity Reaction Status Date / Time adhesive tape Allergy Mild SKIN Verified 11/27/24 10:04 BLISTERS Penicillins Allergy Unknown A Verified 11/27/24 10:04 CHILD-"CLUMPED IN ARM" Sulfa (Sulfonamide Allergy Unknown Unknown Verified 11/27/24 10:04 Antibiotics) amoxicillin AdvReac Unknown NAUSEA AND Verified 11/27/24 10:04 VOMITING Home Medications Medication Instructions Recorded Confirmed Type cholecalciferol (vitamin D3) 10 400 unit PO 3XWK 08/07/19 01/22/25 History mcg (400 unit) capsule (Vitamin D3) cyanocobalamin (vitamin B-12) 500 500 mcg PO 3XWK 08/07/19 01/22/25 History mcg tablet glucosamine-chondroitin 250 mg-200 1 tab PO 3XWK 08/07/19 01/22/25 History mg tablet (Osteo Bi-Flex) multivitamin 1 tab PO 3XWK 08/07/19 01/22/25 History potassium chloride 20 mEq 20 meq PO QAM #90 tabs 04/09/24 01/22/25 Rx tablet,extended release(part/cryst) ascorbic acid (vitamin C) 500 mg 500 mg PO DAILY 11/03/24 01/22/25 History tablet,extended release (Vitamin C ER) levothyroxine 50 mcg tablet 50 mcg PO DAILYBB 01/22/25 01/22/25 History losartan 100 mg tablet 100 mg PO QAM 01/22/25 01/22/25 History acetaminophen 500 mg tablet 1,000 mg (2 x 500 mg) PO Q8 #0 tabs 01/23/25 Rx (Tylenol Extra Strength) aspirin 81 mg tablet,delayed 81 mg PO BID #60 tabs 01/23/25 Rx release tramadol 50 mg tablet 50 mg PO Q4H PRN pain #30 tabs 01/23/25 Rx Patient History Medical History Prediabetes Dyslipidemia Hypertension Insomnia Tinea corporis Postmenopausal state Fear of needles Hypothyroidism GERD (gastroesophageal reflux disease) Hiatal hernia Arrhythmia Surgical History History of surgical removal of ganglion cyst History of repair of rotator cuff History of esophagogastroduodenoscopy (EGD) History of cardiac cath History of wisdom tooth extraction History of tubal ligation History of breast surgery History of tonsillectomy History of colonoscopy (~09/2019) Family History Family/Other Diabetes Hypertension Son Systemic lupus erythematosus Rheumatoid arthritis Mother Rheumatoid arthritis Diabetes Hyperlipidemia Stroke Grandmother Breast cancer Brother Aortic aneurysm Denies family history of Ovarian cancer Prostate cancer Colorectal cancer Social History Smoking Status: Former smoker Tobacco Type: Cigarettes Age Started Using Tobacco: 33; Age Quit Using Tobacco: 45; packs per day: 0.5; Second Hand Exposure: No; Do You Dip or Chew Tobacco: No; Hx Alcohol Use: Yes Alcohol type: hard liquor Hx Substance Use: No Preferred Language: [place]se Communication Ability: Effective Security Developer Required: No Beliefs That Will Affect Care: None Current Living Situation: Spouse Current Living Situation Comment: home wit current occupational status: retired Feels Safe at Home: Yes Dental Care, Regularly: Yes Physical Activity Frequency: 3-4 Times per Week Seatbelt Use: always Sunscreen Use: No Assistive Devices: Crutches and Walker Review of Systems Review of Systems: All systems reviewed & are unremarkable except as noted in HPI & below Physical Exam Physical Exam: Patient's right foot and ankle are resting in a well-padded splint. I did split the Kareem wrap and examine her foot which appears markedly swollen. There is no open wounds appreciated. Patient is tender palpation about her midfoot as well as about her distal fibula. Results & Data Vital Signs (Past 12 Hours) Vital Signs Temp Pulse Pulse Resp BP Pulse Ox O2 Del Method 01/23/25 15:51 37 C 94 H 20 165/104 H 94 01/23/25 13:03 75 01/23/25 11:16 37 C 94 H 20 165/104 H 94 Room Air Diagnostic Findings X-rays and CT scans of the right foot and ankle were personally interpreted and reviewed. These demonstrate a complex midfoot injury involving her TMT joints 1 through 5 with subluxation and instability noted at all of these. Additionally, the patient appears to have a Gonzalez B distal fibula fracture that is nondisplaced. (2) Closed fracture of distal end of right fibula Encounter type: initial encounter
--- NOTE | 2025-01-24 01:02 | Electrocardiogram Report ---
Test Reason : Blood Pressure : */* mmHG Vent. Rate : 76 BPM Atrial Rate : 76 BPM P-R Int : 144 ms QRS Dur : 96 ms QT Int : 404 ms P-R-T Axes : 26 7 19 degrees QTcB Int : 454 ms Normal sinus rhythm Inferior infarct , age undetermined Abnormal ECG When compared with ECG of 24-May-2020 09:02, QT has lengthened Confirmed by Srinivasa Pal ([id number]) on 01/24/2025 1:01:55 AM Referred By: REFERRED SELF Confirmed By: Srinivasa Pal
--- NOTE | 2025-01-24 15:58 | Discharge Summary ---
Discharge Summary Date of Service January 24, 2025 Principal Dx & Hospital Course #1 = Principal Diagnosis (1) Closed fracture of distal end of right fibula: (2) Fracture of right foot: (3) Pericardial effusion: (4) Elevated d-dimer: (5) Hypothyroidism: (6) Dyslipidemia: (7) Hypertension: (8) Prediabetes: Plan Patient is a 70-year-old female with past medical history of hypothyroidism, hyperlipidemia, hypertension, CAD, prediabetes, and GERD who is admitted for monitoring after experiencing a mechanical fall that resulted in acute right ankle fracture and right foot fracture. Mechanical fall, does not seem very concerning for syncopal episode. No significant events on tele overnight, occasional PVCs. Pericardial effusion on CTA chest is trivial. Ddimer was elevated and had recent plane flight but CTA negative for PE, LE duplex negative. # Right ankle fractures # Right foot fractures -consulted orthopedics - Dr. Gray plans for surgery next week when the swelling has reduced -continue pain control with scheduled APAP and PRN tramadol, NWB RLE, elevate - she was able to mobilize well with physical therapy and return home with her -No medical contraindications to proceeding to surgery if needed. Personally reviewed EKG tracing - no acute/unstable changes. Presumed CAD based on CTA with coronary calcifications, possible old inferior infarct on EKG, Echo pending. No symptoms of ACS/angina or heart failure. Hypothyroidism - Continue home levothyroxine HTN - Continue home Losartan HLD - Managed with lifestyle changes - HH and DM-II diet Pre-diabetes - No home meds - counseled with respect to diet follow-up in primary care provided prescription for bedside commode, wheelchair, she already has a walker and crutches at home. Discharge prescriptions for pain control VTE ppx: 81 mg aspirin twice a day Admission HPI Per Admitting Provider Patient is a 70-year-old female with past medical history of hypothyroidism, CAD, hyperlipidemia, hypertension, prediabetes, GERD who came to the emergency department after experiencing a fall at home resulting in significant right ankle pain that limited ambulation. Patient returned from the trip to [facility] yesterday and was unpacking today. While she was walking with a large load of clothing with her arms, she was walking slowly down a flight of 7 steps since she felt a little imbalance while carrying these close, and does not recall whether she missed a step or missed a handlebar to help balance her, but then fell down the steps. She denies having any loss of consciousness, and denies having any preceding symptoms such as chest pain, palpitations, shortness of breath, weakness, vision impairments, diaphoresis, nausea, or any other symptom. A few years ago, patient had been experiencing a fluttering sensation in her chest, for which she was placed on monitor for a short time, but states that nothing was found during this time. Since then, she denies having any recurrence of the fluttering sensation in her chest, but also states that she "does not focus on those types of things ". Labs/Imaging: CBC no significant leukocytosis, hemoglobin of 13.8, and platelets of 280. CMP without significant electrolyte abnormalities, creatinine of 0.77, glucose of 112. D-dimer of ~2300. Magnesium 2.0. Right ankle x-ray showing spiral fracture of distal fibular shaft. Foot x-ray with a possible Lisfranc fracture. Chest x-ray unremarkable. Head CT without acute changes. Hip and pelvic x-ray unremarkable. Foot and ankle CT done and read pending. Chest CTA without evidence of PE, and shows cardiomegaly with trace pericardial effusion. Venous Doppler done and read pending. Medical History: [Reviewed] Medications: [Reviewed] Surgical History: [Reviewed] Family history: [Reviewed] Allergies: [Reviewed] Social History: [Reviewed] Code Status: DNR/DNI Discharge Exam Last 24h vitals reviewed GEN: no acute distress, sitting in bed HEENT: pupils equal, sclerae anicteric, moist MM RESP: normal WOB, CTAB CV: reg no mrg ABD: soft/nt/nd +BT : no sofia SKIN: warm and dry, no generalized rashes extremities: Right lower extremity is in a splint and covered with an Kareem wrap her toes are pink and well-perfused NEURO: AOx person, place, and situation. Face symmetric, speech normal, moves 4 ext spontaneously and equally Discharge Plan Discharge Items Patient Disposition: Home - Self-Care Reason For Visit: FALL Discharge Diagnosis: Right ankle and foot fractures Condition on Discharge: Good Activity: Per Instructions section Weightbearing: Right non-weightbearing Non-emergency contact: Primary Care Provider and Surgeon Call non-emergency contact if: you have any medication questions, your symptoms worsen and your pain is worsening Follow-up/Referrals: Jorge Lockhart DO [Primary Care Provider] - 01/30/25 1:00 pm Diet: Regular Addtl Attending Provider Instructions: Follow up with Dr. Gray as planned next week Non-weight bearing R leg, keep elevated as much as possible, may ice it, keep splint dry and do not submerge splint/leg/foot Use walker for mobility Wheelchair for more than short distances "Bumping" up/down the steps is the safest way - make sure your is there to help you Heart Echo result is pending - I will call you if there is anything concerning on it Follow up in primary care Following up with Dr. Pascual about coronary disease based on CT scan is a good idea Take a baby aspirin twice a day to prevent blood clots (DVT) related to fracture and surgery. Once DVT prophylaxis no longer necessary you can reduce the aspirin to once a day for heart protection. The losartan and good blood pressure control is good for your heart. Ask your PCP or Dr. Pascual to recheck your cholesterol - you may benefit from cholesterol-lowering medicine at this point. It was a pleasure taking care of you in the hospital, Dinorah Meraz MD Pending Studies at Discharge: Yes (Echo report) Stand-Alone Forms: My [facility] [employer], Smoking Cessation Medications and DC Order Prescriptions: New acetaminophen [Tylenol Extra Strength] 500 mg Tablet 1,000 mg PO Q8 Qty: 0 0RF Rx Instructions: buy over the counter - take on a schedule for pain control aspirin 81 mg tablet,delayed release (DR/EC) 81 mg PO BID Qty: 60 0RF Rx Instructions: buy over the counter tramadol 50 mg tablet 50 mg PO Q4H PRN (Reason: pain) Qty: 30 0RF Continued potassium chloride 20 mEq tablet,ER particles/crystals 20 meq PO QAM Qty: 90 3RF Rx Instructions: TAKE ONE TABLET BY MOUTH EVERY DAY multivitamin Tablet 1 tab PO 3XWK Rx Instructions: AM cyanocobalamin (vitamin B-12) 500 mcg Tablet 500 mcg PO 3XWK Rx Instructions: AM cholecalciferol (vitamin D3) [Vitamin D3] 400 unit Capsule 400 unit PO 3XWK Rx Instructions: AM glucosamine-chondroitin [Osteo Bi-Flex] 250-200 mg Tablet 1 tab PO 3XWK Rx Instructions: AM ascorbic acid (vitamin C) [Vitamin C] 500 mg Tablet Extended Release 500 mg PO DAILY levothyroxine 50 mcg tablet 50 mcg PO DAILYBB losartan 100 mg tablet 100 mg PO QAM Discharge Orders: Discharge Order (Routine); Ordered 01/23/25 Ordered By: Dinorah Gardner/Other Patient Handouts: ED Leg Fracture Admission Data Admit Date/Time: 01/22/25 21:11 Attending Provider: Dinorah Meraz Admit Provider: Karyn Nolen Primary Care Provider: Jorge Lockhart Other Providers: Lane Gray; Duncan Menjivar Other Interventions: Discharge Summary Assessment (RN) Last Done: 01/23/25 15:51 Hospital Stay Data Consultations 01/22/25 20:06 ED Decision to Admit Stat 01/22/25 21:13 Consult Orthopedic Surgery Routine Diagnostic Imagining Performed 01/22/25 17:01 CT head/brain wo con Stat 01/22/25 18:32 US venous doppler LE BI Stat 01/22/25 18:36 CT angio chest PE protocol Stat 01/22/25 19:42 CT ankle RT wo con Stat CT foot RT wo con Stat Pending Results Patient Have Any Pending Studies at Discharge: Yes (Echo report) Discharge Instructions Given to Patient (Per Discharging Provider) Follow up with Dr. Gray as planned next week Non-weight bearing R leg, keep elevated as much as possible, may ice it, keep splint dry and do not submerge splint/leg/foot Use walker for mobility Wheelchair for more than short distances "Bumping" up/down the steps is the safest way - make sure your is there to help you Heart Echo result is pending - I will call you if there is anything concerning on it Follow up in primary care Following up with Dr. Pascual about coronary disease based on CT scan is a good idea Take a baby aspirin twice a day to prevent blood clots (DVT) related to fracture and surgery. Once DVT prophylaxis no longer necessary you can reduce the aspirin to once a day for heart protection. The losartan and good blood pressure control is good for your heart. Ask your PCP or Dr. Pascual to recheck your cholesterol - you may benefit from cholesterol-lowering medicine at this point. It was a pleasure taking care of you in the hospital, Dinorah Meraz MD Total Time Total Time Spent Total Time Spent (In Minutes): I personally spent: 40 minutes today on clinical care activities including: reviewing chart notes and vital signs reviewing labs reviewing studies discussion with marketing sales consultant(s), physical therapist discussion with health care social worker examining and counseling the patient counseling the patient's family writing orders writing prescriptions, discharge instructions documentation Coding Level of Care Code 50231 INP/OBS DISCH >30 MIN Diagnoses Closed fracture of distal end of right fibula S82.831A Encounter type: initial encounter Fracture of right foot S92.901A Pericardial effusion I31.39 Elevated d-dimer R79.89 Hypothyroidism E03.9 Dyslipidemia E78.5 Hypertension I10 Prediabetes R73.03
== END 2025-01-23 16:59 | disposition home or self-care (01) ==
LOC: 2N 16:35 → ED 16:35 → SUATTDRO 21:11 → 2N 22:41